=== PATIENT | female | born 1945 | race Two or more races ===

== ENCOUNTER → 2016-12-24 | Outpatient (CLI) | payer MEDICARE, MEDICAID ==
[~2016-12-24] MED LIST: ALENDRONATE SOD70 MG PO; ASPIRIN (CHILDR81 MG PO; ASPIRIN325 MG PO; LIPITOR80 MG PO; NORVASC2.5 MG PO; PROTONIX40 MG PO; RANEXA ER500 MG PO
== END | disposition disaster alternative care site (69) ==
LOC: GRAD 12-01 13:30
DX: R07.89 Other chest pain (principal); I25.10 Atherosclerotic heart disease of native coronary artery without angina pectoris; K44.9 Diaphragmatic hernia without obstruction or gangrene

== ENCOUNTER → 2017-05-05 | Outpatient (CLI) | payer MEDICARE, MEDICAID ==
[2017-05-05 13:40] LABS: CPK 172 IU/L (21-215)
== END ==
LOC: LNHI 13:20
PROVIDERS: Internal Medicine Cardiovascular Disease
DX: I10 Essential (primary) hypertension (principal); I25.10 Atherosclerotic heart disease of native coronary artery without angina pectoris; R07.9 Chest pain, unspecified

== ENCOUNTER → 2017-05-06 | Outpatient (CLI) | payer MEDICARE, MEDICAID ==
--- NOTE | ~2017-05-06 | ESTC ---
Cardiac Perfusion Imaging Demographics Patient Name JM Pink Gender Female Patient Number [id number] Race Other Visit Number [id number] [place] [id number] Room Number Accession Number [id number] Height Date of 1945 Weight Age 71 year(s) BSA Referring Physician Sandra Abreu MD Interpreting [facility] - [place] Date of study 05/06/2017 Physician Kristen Dobson Supervising MD/MLP Sandra DASILVA Technologist Keena Abreu MD Ordering Physician Sandra Abreu MD career resource technician Stress ECG Reading Sandra Mcmullen Nurse Evette Anguiano RN Physician A MD Kaiden Andrade RN Procedure Procedure Type: Nuclear Stress Test:Exercise, Cardiolite Stress Test Procedure Start time: 05/06/2017 00:00 Indications: Chest pain. Risk Factors The patient risk factors include:prior PCI;former tobacco use, treated hypercholesterolemia, dyslipidemia, prior CT and ( years not smokin). Conclusions Summary Perfusion Images: The overall quality of the study is fair. Left ventricular cavity is noted to be normal on the stress and rest studies. Stress SPECT images images demonstrate large size moderate decrease uptake in the area involving the anterior wall and the anterolateral wall which is reversible on rest images consistent with ischemia. Gated SPECT imaging reveals normal myocardial thickening and wall motion. The left ventricular ejection fraction was calculated to be 62%. Impression ECG portion of the stress test is clinically negative for ischemia by diagnostic criteria. Myocardial perfusion imaging is abnormal. Images reveal a large sized area of moderate anterior wall and mild anterolateral wall ischemia. Gated wall motion is normal with LVEF 62%. This is a intermediate to high risk stress test. Findings D/w Dr. Flores Stress Protocols Resting ECG S yuki Resting HR:56 bpm Resting BP:150/65 mmHg Pre-stress physical exam: Patient assessed by Dr Flores prior to testing. Stress Protocol:Exercise Peak HR:146 bpm HR response: Appropriate Predicted HR: 150 bpm BP response: Appropriate % of predicted HR: 97 Test duration:05:00 min Reason for termination:Target heart rate ECG Findings No ECG changes suggestive of ischemia. Arrhythmias No rhythm abnormality. Symptoms No cardiovascular symptoms with maximal exercise. Stress Interpretation Appropriate hemodynamic response to exercise. No significant ST-T wave changes with exercise. EKG portion is negative for ischemia by diagnostic criteria. The Moreno Treadmill score was 5 .This corresponds to a low risk stress test. Imaging Results Summed scores - Summed stress score: 10 - Summed rest score: 1 - Summed difference score: 9 Stress ejection Ejection fraction:63 % EDV :91 ml ESV :34 ml Stroke volume :57 ml LV mass :115 gr Imaging Protocols Rest Stress Isotope:Tc99m Sestamibi IV Isotope: Tc99m Sestamibi IV Isotope dose:10.9 mCi Isotope dose:35.3 mCi Date:05/06/2017 08:00 Date:05/06/2017 10:02 Technique: SPECT Technique: Gated Supine SPECT Supine Scan Time:45-60 minutes post Scan Time:45-60 minutes post injection injection Medical History Admission Data Admission date: 05/06/2017 Admission Time: 07:40 Hospital Status: Outpatient. Signatures dtt: NOÉ MARTINES dtd: 05/06/17 0000 Physician Self Edit
== END | disposition disaster alternative care site (69) ==
LOC: GRAD 07:40
DX: R07.9 Chest pain, unspecified (principal); E78.00 Pure hypercholesterolemia, unspecified; E78.5 Hyperlipidemia, unspecified; I25.2 Old myocardial infarction; I25.89 Other forms of chronic ischemic heart disease; Z87.891 Personal history of nicotine dependence; Z98.61 Coronary angioplasty status
CPT/HCPCS: A9500

== ENCOUNTER 2017-05-11 06:59 | Outpatient (CLI) | payer MEDICARE, MEDICAID ==
[~2017-05-11] VITALS: Ht 149.9 cm; Wt 76.1 kg
--- NOTE | ~2017-05-11 | CATH ---
Cardiac Diagnostic Report Demographics Patient Name JM Pink Gender Female Date of 1945 Age 71 year(s) Patient Number [id number] Date of Study 05/11/2017 Visit Number [id number] Room Number [id number] [place] [id number] Ht 149.86 cm Wt 76.1 kg Referring Efstratiou Primary Physician Physician Benedict Abreu MD Performing E[facility]str[facility] Secondary Physician Physician Benedict Abreu MD Diagnostic [facility] Assisting Physician Physician Benedict Abreu MD Interventional Physician Hold Worker Physician Findings and Conclusions Diagnostic Findings and Conclusion No significant progression. Patent previous Circumflex sent. Diagnostic Recommendations Continue medical therapy. Procedure Description The patient was brought to the diagnostic cardiac catheterization-EP laboratory in the fasting, non-sedated state. Informed consent was obtained in the written and verbal form after the risks and benefits were explained. The patient had no further questions and agreed to proceed. The planned puncture-incision site(s) were shaved and prepped with ChloraPrep and draped in the usual sterile manner. Conscious sedation, supplemental oxygen, and pain control medications were delivered by a registered nurse under physician guidance. Surface ECG rhythm, blood pressure measurement, and pulse oximetry were monitored throughout the procedure. Arterial access. The access site was infiltrated with lidocaine. The vessel was entered with the Seldinger technique. A sheath was advanced into the vessel and used for catheter placement. Selective left coronary angiography. A catheter was advanced into the left coronary vessel ostium under Fluoroscopic guidance. Contrast was injected by hand. Images were obtained in multiple projections. Selective right coronary angiography. A catheter was advanced into the right coronary vessel ostium under fluoroscopic guidance. Contrast was injected by hand. Images were obtained in multiple projections. Left heart catheterization. A catheter was advanced across the aortic valve to the left ventricle under fluoroscopic guidance. Resting hemodynamics were obtained. Arterial artery hemostasis was achieved. The patient was transferred to a regular nursing floor via cart accompanied by a nurse. The patient left the laboratory in stable condition. Diagnostic Cath Status: Elective Procedure Procedure Type Diagnostic procedure:Angiography:, Coronary Angios w/[facility] Indications: Positive nuclear perfusion study. The procedure was explained in detail to the patient. Risks, complications and alternative treatments were reviewed. Written consent was obtained. Medications Reviewed with Patient prior to Procedure. Angiographic Findings Dominance: Right Cardiac Arteries and Lesion Findings LMCA: Normal (0% Stenosis).Patent. LAD: Diagonal patent. Lesion on Mid LAD: 20% stenosis . LCx: Normal (0% Stenosis).Circumflex has patent proximal stent. OM patent. RCA: Lesion on Mid RCA: 20% stenosis . Coronary Tree Procedure Data Procedure Date Date: 05/11/2017Start: 09:02 AMEnd: 09:28 AM Entry Locations - Retrograde Percutaneous access was performed through the Right Femoral artery (Primary location). A 6 Fr sheath was inserted. Hemostasis was successfully obtained using Angio-Seal STS PLUS ([facility]). Closure Comments: Successful deployment by Dr. Squires Procedure Medications Order and Administration + + +-------+------+ !Time !Medication !Dosage !Route ! + + +-------+------+ !05/11/2017 08:59 AM !Versed !1 mg !I.V. ! + + +-------+------+ !05/11/2017 08:58 AM !Fentanyl !50 mcg !I.V. ! + + +-------+------+ Devices Used - A6 Fr. BS JR 4 Diag. Catheterwas used for:Right coronary angiography. - A6 Fr. BS JL 3.5 Diag. Catheterwas used for:Left coronary angiography. - A6 Fr. BS Angled Pigtail Diag. Catheterwas used for:LV Pressures. Contrast Material - Isovue 86252 ml Fluoroscopy Time: Diagnostic: 2:36 minutes. Total: 2:36 minutes. Fluoroscopy Dose: Diagnostic: 592 mGy. Total: 592 mGy. Estimated Blood Loss: 10 ml. Medical History Allergies - No known allergies. Risk Factors The patient risk factors include:prior PCI;treated hypercholesterolemia, hypertension, last creatinine: 1 mg/dl, creatinine clearance: 62.89 ml/min, dyslipidemia and former tobacco use. Admission Data Admission Date: 05/11/2017 Admission Time: 06:59 AM Admit Source: Other Insurance Payors: Medicare. Admission Medications + +------+-------+ + + + + !Medication!Dosage!Times !Last !Last !Administered !Comments ! ! ! !Per Day!Delivery !Delivery ! ! ! ! ! ! !Date !Time ! ! ! + +------+-------+ + + + + !Aspirin ! ! ! ! !Yes ! ! !(any) ! ! ! ! ! ! ! + +------+-------+ + + + + !Statin ! ! ! ! !Yes ! ! !(any) ! ! ! ! ! ! ! + +------+-------+ + + + + Clinical Evaluation Leading to Procedure - The patient's CAD presentation was assessed as: Unstable angina. - The patient's anginal syndrome during the past two weeks was assessed as: Class II according to the Weber Cardiovascular Society Classification System (CCS). Anti-anginal medications were prescribed during the past two weeks. The medication is: Ranolazine. Snapshots Hemodynamics Condition: Rest O2 Consumption: Estimated: 145.50Heart Rate: 52 bpm Pressures (mmHg) +-----+ + !Site !Pressure ! +-----+ + !AO !173/70 (108) ! +-----+ + !AO !161/67 (102) ! +-----+ + !LV !167/-3 ,15 ! +-----+ + !LV !160/-5 ,12 ! +-----+ + !AO !174/68 (106) ! +-----+ + !LV !157/-5 ,12 ! +-----+ + Valve Gradients and Areas + +---------+---------+---------+ +---------+ + !Valve !Peak !Mean !Area !Index !Flow !Source ! + +---------+---------+---------+ +---------+ + !Aortic !0 !0 ! ! ! ! ! + +---------+---------+---------+ +---------+ + !Aortic !0 !0 ! ! ! ! ! + +---------+---------+---------+ +---------+ + Shunts Oxygen Values O2 Capacity 160.48 O2 Consumption 145.5 Signatures dtt: Hayes Flores dtd: 05/11/17 0902 Physician Self Edit
[~2017-05-11 06:59] MED LIST changes: -ASPIRIN (CHILDR81 MG PO; -NORVASC2.5 MG PO
[2017-05-11] MEDS ORDERED: ASPIRIN (CHILDR81 MG PO (07:20)
[2017-05-11 07:26] LABS: BASOPHIL # 0.1 K/uL (0.0-0.2); BASOPHIL % 1.6 %; EOSINOPHIL # 0.3 K/uL (0.0-0.5); EOSINOPHIL % 5.1 %; HEMOGLOBIN 11.8 g/dL (10.0-15.0); IMMATURE GRANULOCYTE % 0.3 %; LYMPHOCYTE # 2.5 K/uL (0.8-4.0); LYMPHOCYTE % 37.2 %; MCH 28.6 pg (27.0-34.0); MCHC 31.9 gm/dL (32.0-36.5); MCV 89.6 fl (83.0-98.0); MONOCYTE # 0.6 K/uL (0.0-1.0); MONOCYTE % 8.8 %; MPV 12.1 fl (9.4-12.4); NEUTROPHIL # (ANC) 3.1 K/uL (1.8-7.8); NRBC % 0 /100WBC (0-0.00); PLATELET COUNT 232 K/uL (150-450); RBC 4.13 M/uL (3.50-5.50); RDW-CV 15.1 % (11.9-14.6); WBC 6.7 K/uL (4.0-11.0)
[2017-05-11 07:34] LABS: INR - (THERAPEUTIC) 0.93 (0.92-1.07); PROTIME 9.8 SECONDS (9.8-11.4); PTT 23 SECONDS (25-32)
[2017-05-11 07:41] LABS: ALBUMIN 3.7 gm/dL (3.5-5.0); ANION GAP 9.4 (10.0-19.0); CALCIUM 8.9 mg/dL (8.5-10.5); POTASSIUM 3.4 mMol/L (3.7-5.1); TOTAL BILIRUBIN 0.7 mg/dL (0.0-1.5); TOTAL PROTEIN 6.9 g/dL (6.0-8.4)
[2017-05-11] MEDS ORDERED: NORVASC2.5 MG PO (10:27)
== END 2017-05-11 13:40 | disposition disaster alternative care site (69) ==
LOC: GPCU 06:59 → GCAT 06:59 → GPOC 07:00 → GCAT 13:40
PROVIDERS: Internal Medicine Cardiovascular Disease
PROC: 4A023N7 Measurement of Cardiac Sampling and Pressure, Left Heart, Percutaneous Approach (ICD-10-PCS; principal; 2017-05-11)
PROC: B216YZZ Fluoroscopy of Right and Left Heart using Other Contrast (ICD-10-PCS; 2017-05-11)
DX: R94.39 Abnormal result of other cardiovascular function study (principal); R00.1 Bradycardia, unspecified; I45.81 Long QT syndrome
CPT/HCPCS: C1760; C1894; J1644; J2001; J2250; J3010; J7030